=== PATIENT | male | born 1970 | race Two or more races ===

== ENCOUNTER 2018-06-16 11:38 | Emergency (ER) | payer OTHER ==
[~2018-06-16] VITALS: Ht 177.8 cm; Wt 117.9 kg
[~2018-06-16 11:38] MED LIST: EXFORGE 5-160 M1 TAB
[2018-06-16] MEDS ORDERED: CARDURA XL4 MG (11:58)
[2018-06-16] MEDS ORDERED: ALDACTONE25 MG (11:59)
[2018-06-16] MEDS ORDERED: HYDRALAZINE HCL25 MG (12:00)
== END 2018-06-16 20:28 | disposition home or self-care (01) ==
LOC: ER 11:38
DX: K80.20 Calculus of gallbladder without cholecystitis without obstruction (principal)

== ENCOUNTER 2021-12-06 11:18 | Emergency (ER) | payer OTHER ==
[~2021-12-06] VITALS: Ht 177.8 cm; Wt 122.5 kg
[~2021-12-06 11:18] MED LIST changes: +ALDACTONE25 MG; +CARDURA XL4 MG; +HYDRALAZINE HCL25 MG
== END 2021-12-06 13:45 | disposition home or self-care (01) ==
LOC: ER 11:18
DX: U07.1 COVID-19 (principal)

== ENCOUNTER 2021-12-08 21:40 | Outpatient (CLI) | payer OTHER | END 2021-12-08 22:20 | disposition home or self-care (01) | LOC: ASH CLINIC 21:40 | PROVIDERS: ATTEND General Practice | DX: U07.1 COVID-19 (principal) ==

== ENCOUNTER 2024-09-19 06:35 | Day surgery (SDC) | payer OTHER ==
[~2024-09-19 06:35] MED LIST changes: +ALDACTONE100 MG PO; +AMLODIPINE-OLM1 EAC3 PO; +CARDURA1 MG PO; +HYDRODIURIL12.5 MG PO
[2024-09-19] MEDS ORDERED: SUGAMMADEX SODIUM 200 MG/2 ML VIAL IV ONE (09:31)
== END 2024-09-19 11:25 | disposition home or self-care (01) ==
LOC: CIR.AMB 06:35
PROVIDERS: ATTEND Internal Medicine
DX: D37.1 Neoplasm of uncertain behavior of stomach (principal); K31.7 Polyp of stomach and duodenum; K29.50 Unspecified chronic gastritis without bleeding; K31.A0 Gastric intestinal metaplasia, unspecified